=== PATIENT | female | born 1940 | race Caucasian/White ===

== ENCOUNTER 2019-12-21 06:40 | Inpatient (IN) | payer MEDICARE, OTHER, SELFPAY ==
[2019-12-21] VITALS (15 sets, daily range): BP systolic 113–149; BP diastolic 56–78; PULSE 69–85; RESP 17–26; TEMP 36.4–36.7; O2SAT 87–98; BMI 22.1
--- NOTE | 2019-12-21 07:05 | W.ED.DIZZY ---
HPI - Dizziness General: Chief Complaint: Dizziness Stated Complaint: N/V DIZZY Time Seen by Provider: 12/21/19 06:57 History of Present Illness: HPI Narrative: 78-year-old female who presents complaining of dizziness that started approximately 2 hours ago has vertiginous-like dizziness. She has not really had any significant triggers she has not had previously had any episodes like this. She denies any difficulty speech swallowing or vision. She is not had any difficulty with walking or use of her hands or arms. Earlier this month she was on a course of prednisone and also some cetirizine she is completed the prednisone is still taking cetirizine no other medications that she takes regularly. She is not take anything for this this morning. MD elicited complaint: vertigo Onset (ago): hour(s) Timing: sudden onset Severity: severe Description: room spinning History of similar symptoms: No Exacerbating factors: nothing Relieving factors: nothing Associated symptoms: Reports cough (Chronic unchanged); Denies abnormal vaginal bleeding, change in hearing, chest pain, chills, diaphoresis, ear discharge, ear pressure, fevers/chills, headache(s), malaise, nausea, nasal congestion, palpitations, rash, short of breath, syncope, tinnitus, vomiting or weakness Associated neuro symptoms: Deny confusion, difficulty speaking, dysphagia, diplopia, extremity weakness, facial numbness, facial weakness, gait changes, numbness in extremities or visual changes Review of Systems Const: Denies: chills, malaise or diaphoresis ENMT: Denies: ear discharge, change in hearing, tinnitus or nasal congestion Card: Denies: chest pain, palpitations or syncope Resp: Denies: dyspnea, productive cough or non-productive cough GI: Denies: nausea, vomiting or dysphagia : Denies: flank pain, difficulty voiding, dysuria, urinary frequency or urinary urgency Skin/Breast: Denies: rash or pruritus Neuro: Denies: headache(s), numbness in extremities or confusion PFS ED PFSH: Surgical History (Updated 12/21/19 @ 07:18 by Bernard Carvajal DO) H/O: hysterectomy Physical Exam Const: COMMON NORMALS: no acute distress GENERAL APPEARANCE: cooperative and comfortable ORIENTATION/CONSCIOUSNESS: Yes awake, Yes oriented to person, Yes oriented to place and Yes oriented to time HENMT: COMMON NORMALS: normocephalic, atraumatic, hearing grossly normal bilaterally, external ears normal, EAC's normal, TM's normal bilaterally, Normal nasal mucous membranes and turbinates present, moist oral mucous membranes and oropharynx normal HEAD & SCALP: normocephalic and atraumatic NOSE: Normal nasal mucous membranes and turbinates present EXTERNAL EAR: Yes external ears normal EXTERNAL AUDITORY CANAL: EAC's normal TYMPANIC MEMBRANE: TM's normal bilaterally Eye: COMMON NORMALS: Equal, round and reactive pupils present, EOMs intact bilaterally, conjunctivae normal and no scleral icterus CONJUNCTIVA: Yes conjunctivae normal PUPIL: Yes Equal, round and reactive pupils present Neck/C-Spine: COMMON NORMALS: full ROM, no lymphadenopathy, supple and no JVD Lymph: LYMPHATIC: no lymphadenopathy noted and no lymphedema noted Resp: OTHER: Decreased breath sounds on the right side particularly in the right upper lobe crackles at the right base expiratory wheezes throughout Cardio: COMMON NORMALS: no JVD, regular rate, regular rhythm and No murmurs present (Cardio) RATE: regular rate RHYTHM: regular rhythm GI: COMMON NORMALS: Soft to palpation and No hepatosplenomegaly present AUSCULTATION: Yes normoactive bowel sounds PALPATION: Yes Soft to palpation, No Tenderness to palpation present (GI), No Guarding due to palpation present (GI) and Yes No hepatosplenomegaly present Extremity: COMMON NORMALS: normal to inspection, capillary refill normal, no clubbing, cyanosis or edema, no calf tenderness and no pedal edema Neuro: SENSORIUM/ORIENTATION: Yes oriented to person, Yes oriented to place and Yes oriented to time Skin: COMMON NORMALS: no rashes or lesions noted GENERAL SKIN EXAM: no rashes or lesions noted Course Vital Signs: Vital signs: Vital Signs Temperature 98.0 F 12/22/19 15:40 Pulse Rate 73 12/22/19 15:40 Respiratory Rate 16 12/22/19 15:40 Blood Pressure 147/73 12/22/19 15:40 Pulse Oximetry 91 12/22/19 15:40 MDM - Dizziness MDM Narrative: Medical decision making narrative: Chest x-ray shows new right hilar mass compared to 2015 with suspicious for lung CA. There is a subpulmonic effusion and right upper lobe pneumonia. CTA of the chest confirms highly suspicious for lung CA with postobstructive pneumonia. We will start her on Levaquin cultures have been done discussed with Dr. Ontiveros and will also discussed with Dr. Delong. Lab Data: Labs: Lab Results 12/21/19 12/21/19 12/21/19 Range/Units 07:20 07:20 07:20 WBC 20.0 H (4.0-10.0) 10^3/ uL RBC 4.47 (4.1-5.3) 10^6/u L Hgb 10.6 L (11.5-15.3) g/dL Hct 35.1 L (37.0-47.0) % MCV 78.5 L (81-99) fL MCH 23.7 L (28.0-34.0) pg MCHC 30.2 (30.0-36.0) g/dL RDW 16.3 H (12.1-15.1) % Plt Count 516 H (130-400) 10^3/c mm MPV 9.4 (7.4-10.4) fL Neut % (Auto) 85.9 % Lymph % (Auto) 6.1 % [place] % (Auto) 6.0 % Eos % (Auto) 0.9 % Baso % (Auto) 0.5 % Neut # (Auto) 17.21 H (1.8-7.7) 10^3/u L Lymph # (Auto) 1.2 (0.8-4.8) 10^3/u L [place] # (Auto) 1.2 H (0.2-0.9) 10^3/u L Eos # (Auto) 0.2 (0.0-0.8) 10^3/u L Baso # (Auto) 0.1 (0.0-0.1) 10^3/u L Nucleated RBC % (a uto) 0 % Nucleated RBCs # 0.0 /100WBC Fibrinogen 650 H (174-498) mg/dL D-Dimer 3.60 H (0-0.59) ug/mIFE U Specimen Type Sample Site ABG pH (7.35-7.45) ABG pCO2 (35-45) mmHg ABG pO2 (80.0-100.0) mmH g ABG HCO3 (22-26) mmol/L ABG Base Excess (-2.0-2.0) mmol/ L Fidencio Test Hematocrit (37-47) % O2 Delivery Device O2 Liters/Min % Medical Surgical Tech ID Sodium 135 L (136-145) mmol/L Potassium 4.1 (3.5-5.1) mmol/L Chloride 100 (98-107) mmol/L Carbon Dioxide 22 (22-29) mmol/L Anion Gap 17.1 (5-19) BUN 11 (8-23) mg/dL Creatinine 0.7 (0.5-0.9) mg/dL GFR Calculation Not Reportable Glucose 147 H (65-115) mg/dL Estimat Average Gl ucose Hemoglobin A1c (4.0-6.0) % Calculated Osmolal ity 282 L (285-295) mOsm/k g Lactic Acid (0.5-2.2) mmol/L Calcium 10.7 H (8.5-10.5) mg/dL Magnesium (1.7-2.3) mg/dL Iron (37-145) ug/dL TIBC mcg/dl % Saturation (20-50) % Unsat Iron Binding (112-347) ug/dL Transferrin (200-360) mg/dL Ferritin (15-150) ng/mL Total Bilirubin 0.2 (0.15-1.2) mg/dL AST 17 (0-32) U/L ALT 12 (0-33) U/L Alkaline Phosphata se 79 (35-105) IU/L Lactate Dehydrogen ase (135-214) U/L C-Reactive Protein (0.0-4.9) mg/L Total Protein 7.0 (6.6-8.7) g/dL Albumin 3.5 (3.5-5.2) g/dL Globulin 3.5 (1.3-4.6) g/dL Procalcitonin (0-0.5) ng/mL SARS-CoV-2 Ag (Rap id) (Negative) 12/21/19 12/21/19 12/21/19 Range/Units 07:20 07:20 07:20 WBC (4.0-10.0) 10^3/ uL RBC (4.1-5.3) 10^6/u L Hgb (11.5-15.3) g/dL Hct (37.0-47.0) % MCV (81-99) fL MCH (28.0-34.0) pg MCHC (30.0-36.0) g/dL RDW (12.1-15.1) % Plt Count (130-400) 10^3/c mm MPV (7.4-10.4) fL Neut % (Auto) % Lymph % (Auto) % [place] % (Auto) % Eos % (Auto) % Baso % (Auto) % Neut # (Auto) (1.8-7.7) 10^3/u L Lymph # (Auto) (0.8-4.8) 10^3/u L [place] # (Auto) (0.2-0.9) 10^3/u L Eos # (Auto) (0.0-0.8) 10^3/u L Baso # (Auto) (0.0-0.1) 10^3/u L Nucleated RBC % (a uto) % Nucleated RBCs # /100WBC Fibrinogen (174-498) mg/dL D-Dimer (0-0.59) ug/mIFE U Specimen Type Sample Site ABG pH (7.35-7.45) ABG pCO2 (35-45) mmHg ABG pO2 (80.0-100.0) mmH g ABG HCO3 (22-26) mmol/L ABG Base Excess (-2.0-2.0) mmol/ L Fidencio Test Hematocrit (37-47) % O2 Delivery Device O2 Liters/Min % Medical Surgical Tech ID Sodium (136-145) mmol/L Potassium (3.5-5.1) mmol/L Chloride (98-107) mmol/L Carbon Dioxide (22-29) mmol/L Anion Gap (5-19) BUN (8-23) mg/dL Creatinine (0.5-0.9) mg/dL GFR Calculation Glucose (65-115) mg/dL Estimat Average Gl ucose 123 Hemoglobin A1c 5.9 (4.0-6.0) % Calculated Osmolal ity (285-295) mOsm/k g Lactic Acid 1.5 (0.5-2.2) mmol/L Calcium (8.5-10.5) mg/dL Magnesium 2.1 (1.7-2.3) mg/dL Iron (37-145) ug/dL TIBC mcg/dl % Saturation (20-50) % Unsat Iron Binding (112-347) ug/dL Transferrin (200-360) mg/dL Ferritin 428 H (15-150) ng/mL Total Bilirubin (0.15-1.2) mg/dL AST (0-32) U/L ALT (0-33) U/L Alkaline Phosphata se (35-105) IU/L Lactate Dehydrogen ase 203 (135-214) U/L C-Reactive Protein 87.5 H (0.0-4.9) mg/L Total Protein (6.6-8.7) g/dL Albumin (3.5-5.2) g/dL Globulin (1.3-4.6) g/dL Procalcitonin 0.06 (0-0.5) ng/mL SARS-CoV-2 Ag (Rap id) (Negative) 12/21/19 12/21/19 12/21/19 Range/Units 07:20 08:20 08:20 WBC (4.0-10.0) 10^3/ uL RBC (4.1-5.3) 10^6/u L Hgb (11.5-15.3) g/dL Hct (37.0-47.0) % MCV (81-99) fL MCH (28.0-34.0) pg MCHC (30.0-36.0) g/dL RDW (12.1-15.1) % Plt Count (130-400) 10^3/c mm MPV (7.4-10.4) fL Neut % (Auto) % Lymph % (Auto) % [place] % (Auto) % Eos % (Auto) % Baso % (Auto) % Neut # (Auto) (1.8-7.7) 10^3/u L Lymph # (Auto) (0.8-4.8) 10^3/u L [place] # (Auto) (0.2-0.9) 10^3/u L Eos # (Auto) (0.0-0.8) 10^3/u L Baso # (Auto) (0.0-0.1) 10^3/u L Nucleated RBC % (a uto) % Nucleated RBCs # /100WBC Fibrinogen (174-498) mg/dL D-Dimer (0-0.59) ug/mIFE U Specimen Type Arterial Sample Site Radial, left ABG pH 7.38 (7.35-7.45) ABG pCO2 40.8 (35-45) mmHg ABG pO2 63.6 L (80.0-100.0) mmH g ABG HCO3 23.9 (22-26) mmol/L ABG Base Excess -1.3 (-2.0-2.0) mmol/ L Fidencio Test Pos Hematocrit 30.0 L (37-47) % O2 Delivery Device Nc O2 Liters/Min 3.0 % Medical Surgical Tech ID [place] Sodium (136-145) mmol/L Potassium (3.5-5.1) mmol/L Chloride (98-107) mmol/L Carbon Dioxide (22-29) mmol/L Anion Gap (5-19) BUN (8-23) mg/dL Creatinine (0.5-0.9) mg/dL GFR Calculation Glucose (65-115) mg/dL Estimat Average Gl ucose Hemoglobin A1c (4.0-6.0) % Calculated Osmolal ity (285-295) mOsm/k g Lactic Acid (0.5-2.2) mmol/L Calcium (8.5-10.5) mg/dL Magnesium (1.7-2.3) mg/dL Iron 15 L (37-145) ug/dL TIBC 196 mcg/dl % Saturation 7.6 L (20-50) % Unsat Iron Binding 181 (112-347) ug/dL Transferrin 165 L (200-360) mg/dL Ferritin Cancelled (15-150) ng/mL Total Bilirubin (0.15-1.2) mg/dL AST (0-32) U/L ALT (0-33) U/L Alkaline Phosphata se (35-105) IU/L Lactate Dehydrogen ase (135-214) U/L C-Reactive Protein (0.0-4.9) mg/L Total Protein (6.6-8.7) g/dL Albumin (3.5-5.2) g/dL Globulin (1.3-4.6) g/dL Procalcitonin (0-0.5) ng/mL SARS-CoV-2 Ag (Rap id) Negative (Negative) Discharge Plan Discharge Patient Disposition: Admitted As Inpatient Admit Provider: Faustino Rodas Clinical Impression: Postobstructive pneumonia, Acute respiratory failure with hypoxia, Metastasis to adrenal gland, Anemia, Cavitating mass in right upper lung lobe, Mass of right lung Condition: Stable Interventions: ED Discharge Assessment Last Done: 12/21/19 11:34 ED Charges Last Done: 12/21/19 11:34 Discharge Date/Time: 12/21/19 11:50 Coding Level of Care Code ED Placement Specialist for Chg Fwd Exam Comprehensive
--- NOTE | 2019-12-21 07:19 | CTR_ITS ---
PROCEDURE INFORMATION: Exam: CT Head Without Contrast Exam date and time: 12/21/2019 7:38 AM Age: 78 years old Clinical indication: Dizziness; Additional info: Sudden onset vertigo TECHNIQUE: Imaging protocol: Computed tomography of the head without contrast. Radiation optimization: All CT scans at this facility use at least one of these dose optimization techniques: automated exposure control; mA and/or kV adjustment per patient size (includes targeted exams where dose is matched to clinical indication); or iterative reconstruction. COMPARISON: No relevant prior studies available. RADIATION DOSE METRICS: Total DLP (mGy-cm): 766.58 FINDINGS: Brain: Hypodensity is seen in the periventricular cerebral white matter. This change is nonspecific but is most likely secondary to chronic ischemia within microvascular distributions. Page white matter distinction is maintained throughout the brain. No radiographic evidence of intracranial hemorrhage. Encephalomalacia in the left calcarine region/occipital region Cerebral ventricles: Ventricles are enlarged on the basis of mild diffuse cerebral volume loss. Bones/joints: Unremarkable. No acute fracture. Paranasal sinuses: Visualized sinuses are unremarkable. No fluid levels. Mastoid air cells: Visualized mastoid air cells are well aerated. Soft tissues: Unremarkable. Other findings: No intra or extra-axial masses, lesions or collections. CT/CT head wo con* [id number] IMPRESSION: No radiographic evidence of acute intracranial pathology. Radiation Dose CTDIVOL = (mGy): DLP = 766.58 (mGy-cm)
--- NOTE | 2019-12-21 07:20 | XRR_ITS ---
PROCEDURE INFORMATION: Exam: XR Chest, 1 View Exam date and time: 12/21/2019 7:38 AM Age: 78 years old Clinical indication: Cough and dyspnea; Additional info: Dyspnea/cough TECHNIQUE: Imaging protocol: XR of the chest Views: 1 view. COMPARISON: CR Chest 1 [place] [id number] 03/25/2015 7:46 AM FINDINGS: Lungs: Airspace consolidation within the right upper lobe and right mid lung. Subtle airspace disease right lung base. Pleural thickening right apex. Possible cavitary region of approximately [address] chest. Pleural space: Subpulmonic effusion on the right. Heart/Mediastinum: Unremarkable. No cardiomegaly. Bones/joints: Unremarkable. XR/XR chest 1V portable [id number] IMPRESSION: 1. Airspace consolidation within the right upper lobe and right mid lung. Subtle airspace disease right lung base. Pleural thickening right apex. Possible cavitary region of approximately [address] chest. Findings represent a change from 03-25-20. 2. Subpulmonic effusion on the right.
[2019-12-21] MEDS: ondansetron 2 mg/ML SDV 2 mL 4 MG IVP (07:33)
[2019-12-21] MEDS: LORazepam 2 mg/mL INJ 1 mL 1 MG IVP (07:37)
[2019-12-21 07:38] LABS: Basophils # 0.1 10^3/uL (0.0-0.1); Basophils % 0.5 %; Eosinophils # 0.2 10^3/uL (0.0-0.8); Eosinophils % 0.9 %; Hematocrit 35.1 % (37.0-47.0); Hemoglobin 10.6 g/dL (11.5-15.3); Lymphocytes # 1.2 10^3/uL (0.8-4.8); Lymphocytes % 6.1 %; Mean Corpuscular HGB Conc 30.2 g/dL (30.0-36.0); Mean Corpuscular Hemoglobin 23.7 pg (28.0-34.0); Mean Corpuscular Volume 78.5 fL (81-99); Mean Platelet Volume 9.4 fL (7.4-10.4); Monocytes # 1.2 10^3/uL (0.2-0.9); Neutrophils # 17.21 10^3/uL (1.8-7.7); Neutrophils % 85.9 %; Nucleated Red Blood Cells % 0 %; Platelet Count 516 10^3/cmm (130-400); Red Blood Count 4.47 10^6/uL (4.1-5.3); Red Cell Distribution Width 16.3 % (12.1-15.1)
--- NOTE | 2019-12-21 07:44 | PC.NURSE ---
portable xray at bedside
[2019-12-21 07:59] LABS: Alanine Aminotransferase 12 U/L (0-33); Albumin Level 3.5 g/dL (3.5-5.2); Alkaline Phosphatase 79 IU/L (35-105); Aspartate Amino Transferase 17 U/L (0-32); Blood Urea Nitrogen 11 mg/dL (8-23); Calcium 10.7 mg/dL (8.5-10.5); Carbon Dioxide 22 mmol/L (22-29); Chloride 100 mmol/L (98-107); Creatinine Clr Calc Pharmacy 49.5157; Globulin 3.5 g/dL (1.3-4.6); Glucose 147 mg/dL (65-115); Osmolality Calculated 282 mOsm/kg (285-295); Sodium 135 mmol/L (136-145); Total Bilirubin 0.2 mg/dL (0.15-1.2)
--- NOTE | 2019-12-21 08:00 | CTR_ITS ---
PROCEDURE INFORMATION: Exam: CT Angiography Chest With Contrast Exam date and time: 12/21/2019 8:02 AM Age: 78 years old Clinical indication: Cough and dyspnea; Additional info: Dypnea, abnormal cxr TECHNIQUE: Imaging protocol: Computed tomographic angiography of the chest with intravenous contrast. 3D rendering (Not supervised by radiologist): MIP and/or 3D reconstructed images were created by the technologist. Radiation optimization: All CT scans at this facility use at least one of these dose optimization techniques: automated exposure control; mA and/or kV adjustment per patient size (includes targeted exams where dose is matched to clinical indication); or iterative reconstruction. Contrast material: OMNIPAQUE 350; Contrast volume: 63 ml; Contrast route: INTRAVENOUS (IV); COMPARISON: CR (CHEST, ) 12/21/2019 7:38 AM RADIATION DOSE METRICS: Total DLP (mGy-cm): 515.88 FINDINGS: Pulmonary arteries: Soft tissue mass in the right hilum with narrowing of the pulmonary artery including the artery to the right lower lobe as well as the artery to the right upper lobe. Soft tissue versus fluid within the bronchus to the right upper lobe as well as the right lung base. Large soft tissue mass in the right hilum and perihilar/suprahilar region likely measuring in excess of 6 cm. Cavitation. Postobstructive airspace disease with atelectasis of much of the right upper lobe. No visualized embolus. Aorta: Calcification of the aorta. Lungs: Subtle airspace disease within the left lung base of a somewhat ground-glass nature. Correlate. Pleural space: Unremarkable. No pneumothorax. No pleural effusion. Heart: No pericardial effusion Lymph nodes: Small lymph nodes in the left hilum. Nonspecific. Numerous lymph nodes in the mediastinum non. Nonspecific. Largest of approximately 15 mm. Liver: Low-attenuation lesions within the lateral segment of the left lobe of the liver x2 probable cyst. Follow-up. Spleen: Small accessory spleen. Adrenals: Large adrenal nodule on the left of approximately 3.5 cm. Findings concerning for metastases. Bones/joints: Degenerative changes within the spine Soft tissues: Unremarkable. Other findings: No dissection. The thoracic inlet is unremarkable. CT/CT angio chest PE protcl [id number] IMPRESSION: 1. Soft tissue mass in the right hilum with narrowing of the pulmonary artery including the artery to the right lower lobe as well as the artery to the right upper lobe. Soft tissue versus fluid within the bronchus to the right upper lobe as well as the right lung base. Large soft tissue mass in the right hilum and perihilar/suprahilar region likely measuring in excess of 6 cm. Cavitation. Postobstructive airspace disease with atelectasis of much of the right upper lobe. moderate right pleural effusion with right basilar consolidation versus atelectasis. 2. Subtle airspace disease within the left lung base of a somewhat ground-glass nature. Correlate. Small nodules of approximately 5 mm in the subpleural region of the lingula and abutting the major fissure. 3. No dissection. 4. Large adrenal nodule on the left of approximately 3.5 cm. Findings concerning for metastases. 5. No visualized embolus. Radiation Dose CTDIVOL = (mGy): DLP = 515.88 (mGy-cm)
[2019-12-21 08:06] LABS: Anion Gap 17.1 (5-19); Potassium 4.1 mmol/L (3.5-5.1)
[2019-12-21] MEDS: sodium chloride 0.9% 1,000 ML 999 ML IV (08:19)
--- NOTE | 2019-12-21 08:23 | PC.NURSE ---
pt had taken NC off and pt's room air saturation was 82%. Pt supplemental oxygen increased to 3L and pt's position adjust to allow for maximum lung expansion
[2019-12-21 08:26] LABS: Fibrinogen 650 mg/dL (174-498)
[2019-12-21 08:34] LABS: ABG PCO2 40.8 mmHg (35-45); ABG PH Result 7.38 (7.35-7.45); Base Excess ABG -1.3 mmol/L (-2.0-2.0); Blood Gas Allen Test Pos; Blood Gas Operator Identificat BROMA; Blood Gas Sample Site Radial, left; Blood Gas Sample Type Arterial; HCO3 ABG 23.9 mmol/L (22-26); Oxygen Device NC; PO2 ABG 63.6 mmHg (80.0-100.0)
[2019-12-21] MEDS: iohexol 350 mg/mL 100 mL Btl IV (08:39)
[2019-12-21 08:46] LABS: Procalcitonin 0.06 ng/mL (0-0.5)
[2019-12-21 08:48] LABS: SARS Covid-2 Antigen Negative (Negative)
[2019-12-21] MEDS: levofloxacin-dextrose 5 % 750 MG/150 ML PREMIX 100 MG IV (08:49)
[2019-12-21 08:56] LABS: C Reactive Protein 87.5 mg/L (0.0-4.9); Ferritin 428 ng/mL (15-150); Magnesium 2.1 mg/dL (1.7-2.3)
[2019-12-21 09:14] LABS: Lactate Dehydrogenase 203 U/L (135-214)
[2019-12-21] MEDS: piperacillin-tazobactam 3.375 GM in sodium chloride 0.9% (plus) 50 ML IV ×3 (10:32→23:49)
[2019-12-21 11:03] LABS: Lactic Sepsis W/Reflex 1.5 mmol/L (0.5-2.2)
[2019-12-21 12:17] LABS: Add Urine Microscopic? NO
[2019-12-21 12:19] LABS: Bilirubin Urine Neg (Negative); Blood Urine Neg (Negative); Glucose Urine UA Norm (Normal); Ketones Urine Negative (Negative); Leukocyte Esterase Urine Negative (Negative); Nitrate Urine Negative (Negative); Protein Urine Neg (Negative); Urine Appearance Clear (CLEAR); Urine Color Yellow (Yellow); Urobilinogen Urine Norm (Negative); pH Urine 5 (5-7)
--- NOTE | 2019-12-21 14:16 | PM.HP ---
Providers/Chief Complaint Admitting Physician: Faustino Rodas Primary Care Provider: Santi Modi MD Chief Complaint: N/V DIZZY History of Present Illness Brandi Claire is a 78 year old female with no significant past medical history who presented to emergency room with complaints of shortness of breath, cough with associated generalized weakness and dizziness. She reports that her symptoms started last Monday. Gradual onset. Currently her symptoms are described as moderate in severity. Her cough is dry. She denies hemoptysis. No fever or chills. She denies chest pain or palpitations. Denies any focal muscle weakness or sensory loss. Denies headache. No seizures. No loss of consciousness. Reports some nausea. No vomiting. Denies diarrhea. She denies any similar episodes in the past. The patient is a active smoker. Denies drugs or daily alcohol intake. Does not take any prescription medications. The patient denies any significant family history. Review of Systems General: Reports: 10 or more systems reviewed and unremarkable except in HPI and below Medications/Allergies Home Medications Medication Instructions Recorded Confirmed Last Taken Type naproxen sodium [Aleve] 220 mg PO DAILY 12/21/19 12/21/19 12/20/19 09:00 History Allergies Allergy/AdvReac Type Severity Reaction Status Date / Time No Known Allergies Allergy Verified 12/21/19 06:51 PFSH Acute PFSH: Surgical History (Updated 12/21/19 @ 07:18 by Bernard Carvajal DO) H/O: hysterectomy Vitals/I&O/Wt Last Vital Signs Temp 97.6 F 12/21/19 12:13 Pulse 72 12/21/19 12:13 Resp 18 12/21/19 12:13 BP 139/72 12/21/19 12:13 Pulse Ox 98 12/21/19 12:13 12/20/19 12/21/19 12/21/19 22:59 06:59 14:59 Intake Total 1200 / 1200 Balance 1200 / 1200 Weight last 48 hrs Weight 56.699 kg Physical Exam Narrative: EXAM NARRATIVE: Awake alert oriented. No acute distress. Mood and affect are appropriate. Responses are adequate. Skin is warm and dry. Moist mucous membranes. Neck is supple no JVD Lungs bilateral crackles. More pronounced on the right side. Decreased breath sounds in the right side. No respiratory distress at rest. Heart S1, S2, regular Abdomen soft, nontender, bowel sounds are present Extremities no edema cyanosis or calf tenderness bilaterally No focal muscle weakness or sensory loss. Eyes Laura, extraocular muscles intact. No icterus. Normal speech. Data : 12/21/19 07:20 12/21/19 07:20 Other Labs: Laboratory Results WBC 20.0 10^3/uL (4.0-10.0) H 12/21/19 07:20 RBC 4.47 10^6/uL (4.1-5.3) 12/21/19 07:20 Hgb 10.6 g/dL (11.5-15.3) L 12/21/19 07:20 Hct 35.1 % (37.0-47.0) L 12/21/19 07:20 MCV 78.5 fL (81-99) L 12/21/19 07:20 MCH 23.7 pg (28.0-34.0) L 12/21/19 07:20 MCHC 30.2 g/dL (30.0-36.0) 12/21/19 07:20 RDW 16.3 % (12.1-15.1) H 12/21/19 07:20 Plt Count 516 10^3/cmm (130-400) H 12/21/19 07:20 MPV 9.4 fL (7.4-10.4) 12/21/19 07:20 Neut % (Auto) 85.9 % 12/21/19 07:20 Lymph % (Auto) 6.1 % 12/21/19 07:20 [place] % (Auto) 6.0 % 12/21/19 07:20 Eos % (Auto) 0.9 % 12/21/19 07:20 Baso % (Auto) 0.5 % 12/21/19 07:20 Neut # (Auto) 17.21 10^3/uL (1.8-7.7) H 12/21/19 07:20 Lymph # (Auto) 1.2 10^3/uL (0.8-4.8) 12/21/19 07:20 [place] # (Auto) 1.2 10^3/uL (0.2-0.9) H 12/21/19 07:20 Eos # (Auto) 0.2 10^3/uL (0.0-0.8) 12/21/19 07:20 Baso # (Auto) 0.1 10^3/uL (0.0-0.1) 12/21/19 07:20 Nucleated RBC % (auto) 0 % 12/21/19 07:20 Nucleated RBCs # 0.0 /100WBC 12/21/19 07:20 Fibrinogen 650 mg/dL (174-498) H 12/21/19 07:20 D-Dimer 3.60 ug/mIFEU (0-0.59) H 12/21/19 07:20 Specimen Type Arterial 12/21/19 08:20 Sample Site Radial, left 12/21/19 08:20 ABG pH 7.38 (7.35-7.45) 12/21/19 08:20 ABG pCO2 40.8 mmHg (35-45) 12/21/19 08:20 ABG pO2 63.6 mmHg (80.0-100.0) L 12/21/19 08:20 ABG HCO3 23.9 mmol/L (22-26) 12/21/19 08:20 ABG Base Excess -1.3 mmol/L (-2.0-2.0) 12/21/19 08:20 Fidencio Test Pos 12/21/19 08:20 Hematocrit 30.0 % (37-47) L 12/21/19 08:20 O2 Delivery Device Nc 12/21/19 08:20 O2 Liters/Min 3.0 % 12/21/19 08:20 Complaint Clerk ID Broma 12/21/19 08:20 Sodium 135 mmol/L (136-145) L 12/21/19 07:20 Potassium 4.1 mmol/L (3.5-5.1) 12/21/19 07:20 Chloride 100 mmol/L (98-107) 12/21/19 07:20 Carbon Dioxide 22 mmol/L (22-29) 12/21/19 07:20 Anion Gap 17.1 (5-19) 12/21/19 07:20 BUN 11 mg/dL (8-23) 12/21/19 07:20 Creatinine 0.7 mg/dL (0.5-0.9) 12/21/19 07:20 GFR Calculation Not Reportable 12/21/19 07:20 Glucose 147 mg/dL (65-115) H 12/21/19 07:20 Calculated Osmolality 282 mOsm/kg (285-295) L 12/21/19 07:20 Lactic Acid 1.5 mmol/L (0.5-2.2) 12/21/19 07:20 Calcium 10.7 mg/dL (8.5-10.5) H 12/21/19 07:20 Magnesium 2.1 mg/dL (1.7-2.3) 12/21/19 07:20 Ferritin 428 ng/mL (15-150) H 12/21/19 07:20 Ferritin Cancelled 12/21/19 07:20 Total Bilirubin 0.2 mg/dL (0.15-1.2) 12/21/19 07:20 AST 17 U/L (0-32) 12/21/19 07:20 ALT 12 U/L (0-33) 12/21/19 07:20 Alkaline Phosphatase 79 IU/L (35-105) 12/21/19 07:20 Lactate Dehydrogenase 203 U/L (135-214) 12/21/19 07:20 C-Reactive Protein 87.5 mg/L (0.0-4.9) H 12/21/19 07:20 Total Protein 7.0 g/dL (6.6-8.7) 12/21/19 07:20 Albumin 3.5 g/dL (3.5-5.2) 12/21/19 07:20 Globulin 3.5 g/dL (1.3-4.6) 12/21/19 07:20 Procalcitonin 0.06 ng/mL (0-0.5) 12/21/19 07:20 Urine Color Yellow (Yellow) 12/21/19 11:50 Urine Appearance Clear (CLEAR) 12/21/19 11:50 Urine pH 5 (5-7) 12/21/19 11:50 Ur Specific [place] 1.010 (1.005-1.030) 12/21/19 11:50 Urine Protein Neg (Negative) 12/21/19 11:50 Urine Glucose (UA) Norm (Normal) 12/21/19 11:50 Urine Ketones Negative (Negative) 12/21/19 11:50 Urine Blood Neg (Negative) 12/21/19 11:50 Urine Nitrate Negative (Negative) 12/21/19 11:50 Urine Bilirubin Neg (Negative) 12/21/19 11:50 Urine Urobilinogen Norm mg/dL (Negative) 12/21/19 11:50 Ur Leukocyte Esterase Negative (Negative) 12/21/19 11:50 SARS-CoV-2 Ag (Rapid) Negative (Negative) 12/21/19 08:[address] 12/21/19 07:19 IMPRESSION: No radiographic evidence of acute intracranial pathology. Radiation Dose CTDIVOL = (mGy): DLP = 766.58 (mGy-cm) Chest X-Ray 12/21/19 07:20 IMPRESSION: 1. Airspace consolidation within the right upper lobe and right mid lung. Subtle airspace disease right lung base. Pleural thickening right apex. Possible cavitary region of approximately [address] chest. Findings represent a change from 03-25-20. 2. Subpulmonic effusion on the right. Chest CTA 12/21/19 08:00 IMPRESSION: 1. Soft tissue mass in the right hilum with narrowing of the pulmonary artery including the artery to the right lower lobe as well as the artery to the right upper lobe. Soft tissue versus fluid within the bronchus to the right upper lobe as well as the right lung base. Large soft tissue mass in the right hilum and perihilar/suprahilar region likely measuring in excess of 6 cm. Cavitation. Postobstructive airspace disease with atelectasis of much of the right upper lobe. moderate right pleural effusion with right basilar consolidation versus atelectasis. 2. Subtle airspace disease within the left lung base of a somewhat ground-glass nature. Correlate. Small nodules of approximately 5 mm in the subpleural region of the lingula and abutting the major fissure. 3. No dissection. 4. Large adrenal nodule on the left of approximately 3.5 cm. Findings concerning for metastases. 5. No visualized embolus. Radiation Dose CTDIVOL = (mGy): DLP = 515.88 (mGy-cm) ADDENDUM: 12/21/19902 The above was read and discussed at approximately 9:01 AM CDT on12/21/2019 with the attending physician , Bernard Zuleta. Radiation Dose CTDIVOL = (mGy): DLP = 515.88 (mGy-cm) Micro: Microbiology 12/21/19 11:12 Blood Culture - Preliminary Blood SPECIMEN COLLECTED 12/21/19 07:20 Blood Culture - Preliminary Blood SPECIMEN COLLECTED A&P Additional A&P Information 78-year-old female with no significant past medical history, active smoker, who is presenting with complaints of dizziness and lightheadedness, shortness of breath and dry cough. The patient is found to have hypoxia which responded well to supplemental oxygen. The patient has cavitary lesion in the right lung, hilum. She has bronchial obstruction supplying right upper lobe and right lower lobes. Suspected postobstructive pneumonia. Will check procalcitonin level. We will de-escalate antibiotics if procalcitonin is normal. Acute hypoxic respiratory failure secondary to lung cavitary lesion and postobstructive pneumonia. Continue supplemental oxygen. She is stable now. Starting Zosyn and Levaquin. Will check sputum culture and MRSA screening. Will adjust antibiotics depending on this test results and clinical course. She will receive respiratory treatments as needed. I suspect baseline COPD as well. ER physician Dr. Chu contacted Dr. Delong who will see the patient Monday. Adrenal metastatic lesion. After evaluation by Dr. Delong will decide about possible biopsy or other ways of obtaining tissue diagnosis. The treatment will depend on pathology report. Hyponatremia. Could be related to SIADH secondary to past lung cancer and pneumonia. For now we will continue gentle hydration. Will consider additional testing. Hypercalcemia. Could be part of paraneoplastic syndrome related to the suspected cancer. I will check her PTH related peptide. Normal saline. Monitoring of chemistry panel including calcium level. Anemia. Probably chronic due to cancer. I will order anemia work-up. Hyper glycemia. We will check her A1c level. DVT prophylaxis. Lovenox. The patient wants to be full code. The findings were discussed with the patient. I also discussed the plan of care. I answered to all her questions. She verbalized understanding and satisfaction with the conversation. Attestations Medical Necessity Statement*: Based on my assessment of her current findings and condition she will require more than 2 midnights in the hospital. Coding Level of Care Code Acute Mold Checker for Agustín Tillman
[2019-12-21] MEDS: sodium chloride 0.9% 1,000 ML 75 ML IV (14:37)
[2019-12-21] MEDS: enoxaparin 40 mg/0.4 mL Syringe SUBCUT (14:37)
[2019-12-21 15:02] LABS: Estmated Average Glucose 123; Hemoglobin A1C 5.9 % (4.0-6.0); Iron 15 ug/dL (37-145); Percent Saturation 7.6 % (20-50); Total Iron Binding Capacity 196 mcg/dl; Transferrin 165 mg/dL (200-360); Unsaturated Iron Binding 181 ug/dL (112-347)
[2019-12-22 04:00] VITALS: BP 129/72; PULSE 75; RESP 17; TEMP 36.6; O2SAT 90
--- NOTE | 2019-12-22 04:16 | PC.NURSE ---
full wet brief
[2019-12-22 04:45] LABS: Ionized Calcium 1.2 mmol/L (1.1-1.4)
[2019-12-22 05:33] LABS: Basophils # 0.1 10^3/uL (0.0-0.1); Basophils % 0.8 %; Eosinophils # 0.1 10^3/uL (0.0-0.8); Eosinophils % 1.5 %; Hematocrit 27.7 % (37.0-47.0); Hemoglobin 8.5 g/dL (11.5-15.3); Lymphocytes # 1.3 10^3/uL (0.8-4.8); Lymphocytes % 14.9 %; Mean Corpuscular HGB Conc 30.7 g/dL (30.0-36.0); Mean Corpuscular Hemoglobin 23.9 pg (28.0-34.0); Mean Corpuscular Volume 77.8 fL (81-99); Mean Platelet Volume 9.6 fL (7.4-10.4); Monocytes # 0.9 10^3/uL (0.2-0.9); Monocytes % 9.8 %; Neutrophils # 6.41 10^3/uL (1.8-7.7); Neutrophils % 72.7 %; Nucleated Red Blood Cells % 0 %; Platelet Count 393 10^3/cmm (130-400); Red Blood Count 3.56 10^6/uL (4.1-5.3); White Blood Count 8.8 10^3/uL (4.0-10.0)
[2019-12-22 05:51] LABS: Magnesium 1.9 mg/dL (1.7-2.3)
[2019-12-22 05:52] LABS: Alanine Aminotransferase 10 U/L (0-33); Albumin Level 3.1 g/dL (3.5-5.2); Alkaline Phosphatase 59 IU/L (35-105); Anion Gap 15.3 (5-19); Aspartate Amino Transferase 15 U/L (0-32); Blood Urea Nitrogen 11 mg/dL (8-23); Calcium 9.2 mg/dL (8.5-10.5); Carbon Dioxide 19 mmol/L (22-29); Chloride 105 mmol/L (98-107); Globulin 2.3 g/dL (1.3-4.6); Glucose 96 mg/dL (65-115); Osmolality Calculated 279 mOsm/kg (285-295); Potassium 4.3 mmol/L (3.5-5.1); Sodium 135 mmol/L (136-145); Total Bilirubin 0.2 mg/dL (0.15-1.2); Total Protein 5.4 g/dL (6.6-8.7)
[2019-12-22 05:59] LABS: Procalcitonin 0.14 ng/mL (0-0.5)
--- NOTE | 2019-12-22 07:03 | PC.NURSE ---
Received report from Patricia Hess LVN. Assumed care of patient.
[2019-12-22 07:13] VITALS: BP 128/68; PULSE 77; RESP 16; TEMP 36.4; O2SAT 91
[2019-12-22] MEDS: piperacillin-tazobactam 3.375 GM in sodium chloride 0.9% (plus) 50 ML IV ×3 (07:18→23:34)
[2019-12-22] MEDS: sodium chloride 0.9% 1,000 ML 75 ML IV (07:26)
--- NOTE | 2019-12-22 07:28 | PC.NURSE ---
Patient refusing to wear oxygen, upon entering room for assessment oxygen nasal canula was in the floor, oxygen saturation checked 91% on RA. Will continue to monitor. Patient reports she has been taking it off when no one is in the room.
[2019-12-22] MEDS: pantoprazole 40 mg SDV IVP ×2 (08:33→20:07)
[2019-12-22] MEDS: folic acid 1 mg Tablet PO (08:33)
--- NOTE | 2019-12-22 08:59 | PC.NURSE ---
Rechecked oxygen saturation 84% on RA, placed back on oxygen at 2L via Nasal Canula, oxygen saturation 90%,teaching completed on leaving oxygen in place when nursing staff is not in room, verbalized understanding.
[2019-12-22] MEDS: iron sucrose 200 MG in sodium chloride 0.9% (100 ml) 100 ML 220 MG IV (09:42)
[2019-12-22 10:13] LABS: Vitamin B12 951 pg/mL (232-1245)
--- NOTE | 2019-12-22 10:44 | PC.NURSE ---
Shreyas Claire, son of patient, listed on chart and approved by patient, discussed plan of care and updated on patients status, patient and patient's son had no further questions.
--- NOTE | 2019-12-22 10:54 | PM.PN ---
Subjective Subjective: Interval history: Patient reports ongoing cough, occasionally with streaks of blood in the mucus. She had a bowel movement which was brown. No blood. Denies shortness of breath or chest pain. No nausea or vomiting. No diarrhea Medications: Reviewed: Yes Medication Review Details: Generic Name Dose Route Start Last Admin Trade Name Jade PRN Reason Stop Dose Admin Folic Acid 1 mg 12/22/19 09:00 12/22/19 08:33 Folic Acid PO 1 mg DAILY SARAH Administration Sodium Chloride 1,000 mls @ 75 ml s/hr 12/21/19 14:00 12/22/19 07:26 Sodium Chloride 0.9% IV 75 mls/hr .[id number] SARAH Administration Piperacillin Sod/T azobactam 50 mls @ 12.5 mls /hr 12/21/19 16:00 12/22/19 07:18 Sod 3.375 gm/ So dium Chloride IV 12.5 mls/hr Q8H SARAH Administration Protocol Iron Sucrose 200 m g/ Sodium 110 mls @ 220 mls /hr 12/22/19 09:00 12/22/19 09:42 Chloride IV 12/26/19 09:29 220 mls/hr Q24H SARAH Administration Pantoprazole Sodiu m 40 mg 12/22/19 09:00 12/22/19 08:33 Protonix IVP 40 mg Q12H SARAH Administration Vitals/I&O/Wt Last Vital Signs Temp 97.6 F 12/22/19 07:13 Pulse 77 12/22/19 07:13 Resp 16 12/22/19 07:13 BP 128/68 12/22/19 07:13 Pulse Ox 91 12/22/19 07:13 12/21/19 12/22/19 12/22/19 22:59 06:59 14:59 Intake Total 330 / 1530 1370 / 2900 140 / 140 Output Total 800 / 800 200 / 1000 400 / 400 Balance -470 / 730 1170 / 1900 -260 / -260 Weight last 48 hrs Weight 56.699 kg Physical Exam Narrative: EXAM NARRATIVE: Awake alert oriented. No acute distress. Mood and affect are appropriate. Responses are adequate. Skin is warm and dry. Moist mucous membranes. Neck is supple no JVD Lungs bilateral crackles. More pronounced on the right side. Decreased breath sounds in the right side. No respiratory distress at rest. Heart S1, S2, regular Abdomen soft, nontender, bowel sounds are present Extremities with trace edema bilaterally, no cyanosis or calf tenderness bilaterally No focal muscle weakness or sensory loss. Eyes Laura, extraocular muscles intact. No icterus. Normal speech. Data : 12/22/19 04:35 12/22/19 04:35 Micro: Microbiology 12/21/19 07:20 Blood Culture - Preliminary Blood NEGATIVE TO DATE 12/21/19 14:44 Occult Blood (FIT) - Final Stool - Stool Aspirate 12/21/19 11:12 Blood Culture - Preliminary Blood SPECIMEN COLLECTED A&P Additional A&P Information 78-year-old female with no significant past medical history, active smoker, who is presenting with complaints of dizziness and lightheadedness, shortness of breath and dry cough. The patient is found to have hypoxia which responded well to supplemental oxygen. The patient has cavitary lesion in the right lung, hilum. She has bronchial obstruction supplying right upper lobe and right lower lobes. Suspected postobstructive pneumonia. However, normal procalcitonin level. We will start de-escalating antibiotics. Acute hypoxic respiratory failure secondary to lung cavitary lesion and postobstructive pneumonia. Continue supplemental oxygen. She is stable now. Starting Zosyn for now. Will check sputum culture and MRSA screening. Will adjust antibiotics depending on this test results and clinical course. She will receive respiratory treatments as needed. I suspect baseline COPD as well. ER physician Dr. Chu contacted Dr. Delong who will see the patient Monday. Adrenal metastatic lesion. After evaluation by Dr. Delong will decide about possible biopsy or other ways of obtaining tissue diagnosis. The treatment will depend on pathology report. Hyponatremia. Resolving could be related to SIADH secondary to past lung cancer and pneumonia. Will stop IV fluids and continue monitoring Hypercalcemia. Could be part of paraneoplastic syndrome related to the suspected cancer. I will check her PTH related peptide. Resolved. Will stop IV fluids and monitor Anemia. Worsened since yesterday. I suspect hemodilution. Probably chronic due to cancer. Iron deficiency is present. Will start replacement IV. We will monitor her anemia. Fecal occult blood testing is positive but I suspect this is due to hemoptysis and swallowing the mucus. If anemia worsens further we will consider GI consultation. For now I am starting also IV PPI twice daily. Hyper glycemia. We will check her A1c level. DVT prophylaxis. Teds and SCDs, Lovenox is stopped due to hemoptysis and positive fecal occult blood test/anemia. Full code. The findings were discussed with the patient. I also discussed the plan of care. I answered to all her questions. She verbalized understanding and satisfaction with the conversation. Attestations Medical Necessity Statement*: The patient still limited needs to be in the hospital due to worsening anemia, need for pulmonary evaluation by Dr. Delong tomorrow. Coding Level of Care Code Acute Asbestos Shingle Roofer for Agustín Tillman
--- NOTE | 2019-12-22 11:32 | PC.NURSE ---
Spoke with patients son Shreyas Claire who is requesting update on patient by physician. Mr Claire states that if he does not receive a call from physician within the hour that he will come to hospital and have his mother transferred to another facility. Son states someone from this facility said we would transfer patient to [facility] if patient is positive for Covid. Informed patient that patient is still pending on the Covid test. Questions answered. Physician notified.
[2019-12-22 12:00] VITALS: BP 145/78; PULSE 69; RESP 17; TEMP 36.6; O2SAT 87
--- NOTE | 2019-12-22 13:47 | PC.NURSE ---
upon entry to the room, the patient wasn't wearing her nasal canula. when asked about it the patient stated that she had taken it off to change her shirt and forgot to put it back on. asked patient if it was ok if the oxygen was put back on, and she agreed.
[2019-12-22 15:40] VITALS: BP 147/73; PULSE 73; RESP 16; TEMP 36.7; O2SAT 91
--- NOTE | 2019-12-22 17:12 | PC.NURSE ---
Spoke with patient daughter Lindsay. Received verbal permission to give any medical information to Lindsay Zapata. Patient daughter voiced concerns regarding mother care. Assured daughter that I would speak with patient to discuss any unmet needs or issues with care. Patient states that she did receive a shower today. The patient denies c/o pain or needs and states that she is feeling run down. Daughter phone number will be sent to admissions and placed on chart.
--- NOTE | 2019-12-22 18:42 | PC.NURSE ---
Dr. Rodas notified this nurse to stop IV maintenance fluids, see MAR for further details.
--- NOTE | 2019-12-22 18:43 | PC.NURSE ---
DIRECTOR [place] called nurse to room, IV on floor, tip intact, cleaned and restarted IV 20G to left AC.
[2019-12-22 19:18] VITALS: BP 162/82; PULSE 82; RESP 18; TEMP 36.8; O2SAT 94
[2019-12-22 23:40] VITALS: BP 161/76; PULSE 69; RESP 16; TEMP 36.7; O2SAT 92
[2019-12-23] VITALS (9 sets, daily range): BP systolic 130–167; BP diastolic 57–81; PULSE 68–145; RESP 14–18; TEMP 36.4–37; O2SAT 87–92
--- NOTE | 2019-12-23 04:14 | PC.NURSE ---
patient went in toilet and flushed
[2019-12-23 05:35] LABS: Basophils % 0.4 %; Eosinophils # 0.1 10^3/uL (0.0-0.8); Eosinophils % 1.3 %; Hematocrit 29.2 % (37.0-47.0); Hemoglobin 8.6 g/dL (11.5-15.3); Lymphocytes # 1.1 10^3/uL (0.8-4.8); Lymphocytes % 10.8 %; Mean Corpuscular HGB Conc 29.5 g/dL (30.0-36.0); Mean Corpuscular Volume 81.3 fL (81-99); Mean Platelet Volume 9.2 fL (7.4-10.4); Monocytes # 0.9 10^3/uL (0.2-0.9); Monocytes % 9.1 %; Neutrophils # 7.99 10^3/uL (1.8-7.7); Neutrophils % 77.8 %; Nucleated Red Blood Cells % 0 %; Platelet Count 343 10^3/cmm (130-400); Red Blood Count 3.59 10^6/uL (4.1-5.3); Red Cell Distribution Width 16.1 % (12.1-15.1); White Blood Count 10.3 10^3/uL (4.0-10.0)
[2019-12-23 06:17] LABS: Magnesium 1.9 mg/dL (1.7-2.3)
[2019-12-23 06:31] LABS: Albumin Level 3.1 g/dL (3.5-5.2); Blood Urea Nitrogen 8 mg/dL (8-23); Calcium 9.1 mg/dL (8.5-10.5); Carbon Dioxide 19 mmol/L (22-29); Chloride 104 mmol/L (98-107); Glucose 93 mg/dL (65-115); Phosphorus 3.1 mg/dL (2.5-4.5); Sodium 135 mmol/L (136-145)
[2019-12-23 06:36] LABS: Anion Gap 15.8 (5-19); Potassium 3.8 mmol/L (3.5-5.1)
[2019-12-23 06:47] LABS: Vitamin B12 916 pg/mL (232-1245)
[2019-12-23] MEDS: ondansetron 2 mg/ML SDV 2 mL 4 MG IVP (07:21)
[2019-12-23] MEDS: pantoprazole 40 mg SDV IVP ×2 (07:22→21:31)
[2019-12-23] MEDS: piperacillin-tazobactam 3.375 GM in sodium chloride 0.9% (plus) 50 ML IV ×2 (07:22→15:18)
[2019-12-23] MEDS: folic acid 1 mg Tablet PO (07:22)
--- NOTE | 2019-12-23 08:06 | ECG_ITS ---
[facility] Test Date: 2019-12-23 Pat Name: Brandi Claire Department: Room: 252 Gender: Female Housing Development Specialist: : [id number] Requested By: Sylwia Garcia Order Number: [id number] Benjie MD: Lexy Claire M.D. Measurements Intervals [place] Rate: 74 P: -16 NE: 157 QRS: -3 QRSD: 89 T: -11 QT: 359 QTc: 400 Interpretive Statements SINUS RHYTHM VOLTAGE CRITERIA FOR LVH [MEETS CRITERIA IN ONE OF: R(aVL), S(V1), R(V5), R(V5/V6)+S(V1)] WARNING: DATA QUALITY MAY AFFECT INTERPRETATION Compared to ECG 03/25/2015 08:03:34 Left ventricular hypertrophy now present Myocardial infarct finding no longer present Electronically Signed On 12-23-2019 18:01:29 CDT by Lexy Claire M.D. [id number]
--- NOTE | 2019-12-23 08:06 | PC.NURSE ---
iDr. Garcia notified of patient heart rate increase to 145, after episode of nausea and vomiting this morning, patient denies pain but states, i can just feel it beating fast. New orders received for metoprolol. See MAR for further details.
[2019-12-23] MEDS: metoprolol tartrate 1 mg/1 mL SDV 5 mL 2.5 MG IV (08:11)
--- NOTE | 2019-12-23 08:14 | PC.NURSE ---
ekg monitor tech in place metoprolol given per doctors orders, will continue to monitor heart rate, patient denies pain, talking to family on the phone. Call light in reach, side rails up X2.
--- NOTE | 2019-12-23 08:43 | PC.NURSE ---
Spoke to Shreyas patients son and updated on plan of care, denies further questions or concerns.
--- NOTE | 2019-12-23 08:57 | PC.NURSE ---
Telemetry reading SR 74
--- NOTE | 2019-12-23 09:03 | PC.NURSE ---
Patient denies further nausea, denies pain, call light in reach, side rails up X2
[2019-12-23] MEDS: iron sucrose 200 MG in sodium chloride 0.9% (100 ml) 100 ML 220 MG IV (10:19)
[2019-12-23 10:40] LABS: Coronavirus Lab Test PTC Negative
--- NOTE | 2019-12-23 11:04 | PC.NURSE ---
IV leaking, discontinued, tip intact. updated declan Pritchett on scheduled bronchoscopy, verbalized understanding
[2019-12-23] MEDS: morphine 4 mg/mL SDV 1 mL 2 MG IVP (13:16)
[2019-12-23] MEDS: lidocaine 1% INJ 20 mL INJECTION (13:17)
--- NOTE | 2019-12-23 13:18 | PC.NURSE ---
Assisted Dr. Delong with bedside procedure. Patient received 2mg morphine and lidocaine was administered by Dr. Delong during procedure.
--- NOTE | 2019-12-23 15:13 | XRR_ITS ---
PROCEDURE INFORMATION: Exam: XR Chest, 1 View Exam date and time: 12/23/2019 3:45 PM Age: 79 years old Clinical indication: Device placement; Other: Post needle biopsy; Prior surgery; Surgery date: Post-operative (0-2 days) TECHNIQUE: Imaging protocol: XR of the chest Views: 1 view. COMPARISON: CR (CHEST, ) 12/21/2019 7:38 AM FINDINGS: Lungs: Unremarkable. No consolidation. The right lower lobe and left lung are clear Pleural space: There is a diffuse pleural thickening in the right apical region with a central defect measuring 6.4 cm x 5.5 cm . Right lower lobe pleural effusion. There is pleural tenting in the right hemidiaphragm. No pneumothorax. Heart/Mediastinum: Unremarkable. No cardiomegaly. Bones/joints: Unremarkable. XR/XR chest 1V portable [id number] IMPRESSION: 1. Stable pleural thickening in the right lung apex 2. Volume loss right hemithorax 3. Pleural tenting right hemidiaphragm. 4. Right lower lobe pleural effusion
--- NOTE | 2019-12-23 15:44 | P.CONIM_ITS ---
Providers/Reason For Consult Consulting Physican/Specialty*: Pulmonary and critical care medicine Reason for Consult*: Right lung mass Attending Physician: Sylwia Garcia MD Primary Care Provider: Santi Modi MD History of Present Illness History of Present Illness Brandi Claire is a 79 year old female who presented to the hospital with cough, minimal sputum production, shortness of breath and generalized weakness. During evaluation, the patient was found to have a right upper lobe cavitary lesion with volume loss, right-sided pleural effusion and mediastinal shift. The patient subsequently underwent a CT scan of the chest. The CT scan revealed a soft tissue mass in the right hilum with narrowing of the pulmonary artery. There was significant cavitation. Right lower lobe was completely atelectatic and there was right-sided pleural effusion. There was a large left adrenal nodule measuring 3.5 cm. This is all concerning for metastatic lung malignancy. On laboratory work-up the patient was anemic, had leukocytosis. I had seen and examined the patient. The patient has an extensive history of smoking and quit smoking few weeks ago. She gives a history of chronic cough occasional sputum production and exertional shortness of breath. She does not endorse hemoptysis but tells me about weight loss of 10 pounds in the recent past. I had performed a bedside ultrasound which revealed a soft tissue mass in the right upper lung. Review of Systems General: Reports: 10 or more systems reviewed and unremarkable except in HPI and below Meds/Allergies Home Medications and Allergies Home Medications Medication Instructions Recorded Confirmed Last Taken Type naproxen sodium [Aleve] 220 mg PO DAILY 12/21/19 12/21/19 12/20/19 09:00 History Allergies Allergy/AdvReac Type Severity Reaction Status Date / Time No Known Allergies Allergy Verified 12/21/19 06:51 Current Medications Current Medications Generic Name Dose Route Start Last Admin Trade Name Freq PRN Reason Stop Dose Admin Folic Acid 1 mg 12/22/19 09:00 12/23/19 07:22 Folic Acid PO 1 mg DAILY SARAH Administration Piperacillin Sod/Tazobactam 50 mls @ 12.5 mls/hr 12/21/19 16:00 12/23/19 15:18 Sod 3.375 gm/ Sodium Chloride IV 12.5 mls/hr Q8H SARAH Administration Protocol Iron Sucrose 200 mg/ Sodium 110 mls @ 220 mls/hr 12/22/19 09:00 12/23/19 10:19 Chloride IV 12/26/19 09:29 220 mls/hr Q24H SARAH Administration Metoprolol Tartrate 2.5 mg 12/23/19 08:06 12/23/19 08:11 Metoprolol Tartrate IV 2.5 mg Q4H PRN Administration palpitations, HR >120 Ondansetron HCl 4 mg 12/21/19 12:12 12/23/19 07:21 Zofran IVP 4 mg Q6H PRN Administration NAUSEA AND VOMITING Pantoprazole Sodium 40 mg 12/22/19 09:00 12/23/19 07:22 Protonix IVP 40 mg Q12H SARAH Administration PFSH Acute PFSH: Surgical History H/O: hysterectomy Vitals/I&O/Wt Last Vital Signs Temp 98.6 F 12/23/19 14:57 Pulse 68 12/23/19 14:57 Resp 18 12/23/19 14:57 BP 143/81 12/23/19 14:57 Pulse Ox 91 12/23/19 14:57 12/23/19 12/23/19 12/23/19 06:59 14:59 22:59 Intake Total 50 / 740 50 / 50 Balance 50 / 340 50 / 50 Physical Exam Narrative: EXAM NARRATIVE: General: Patient is awake alert and oriented, in no distress. Neck: No JVD, no cervical or supraclavicular lymphadenopathy. Respiratory: Reduced breath sound in the right lung anteriorly and laterally, the trachea is shifted to the right, reduced chest excursion on the right side, crackles bilaterally, no wheezing or rhonchi Cardiovascular: Regular rate and rhythm, S1-S2 present, no murmur, no peripheral edema. Abdomen: Soft, nontender, nondistended, positive bowel sound Skin: No rash, no evidence of erythema nodosum or multiforme. Neuro: Mental status is normal, no gross cranial nerve deficit, normal motor and coordination. Data Micro: Micro: Microbiology 12/23/19 03:17 Gram Stain - Final Sputum - Expector ated Sputum 12/21/19 14:45 MRSA Culture - Fin al Nose 12/21/19 11:12 Blood Culture - Pr eliminary Blood NEGATIVE TO MONTSE E 12/21/19 07:20 Blood Culture - Pr eliminary Blood NEGATIVE TO MONTSE E Other Data: Attestation for Other Data: I personally reviewed and interpreted the following: Other data: I have reviewed the patient laboratory, microbiologic and radiologic data. 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 I discussed the possibility of a bronchoscopic evaluation with the patient the patient absolutely denied the possibility of any bronchoscopy. After further discussion, patient agreed for ultrasound-guided fine-needle aspiration of the right upper lobe lung mass which was performed. If we do not get a diagnosis from FNA, the patient will need a bronchoscopic evaluation. 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 The patient is discharged from the hospital, I will be happy to follow-up with her as outpatient. 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
--- NOTE | 2019-12-23 16:06 | PM.ACPR ---
Procedure/Consent Time out: Time Out Performed: Yes Consent: Consent for Procedure: Consent obtained from patient Procedure Narrative: Name of the procedure: Ultrasound-guided fine-needle aspiration of the right upper lobe lung mass Indication: Right upper lobe lung mass suspicion for lung malignancy. Medications: 1% lidocaine 10 mL IV pain medication: Morphine 2 mg. Description of the procedure: The site was prepared using sterile technique. Using ultrasound the right upper lobe lung mass was identified. The skin, subcutaneous tissue, muscle and the parietal pleural layers were anesthetized with 1% lidocaine. Under direct ultrasound visualization the FNA was performed from the right upper lobe lung mass. Sample: The FNA sample was sent for cytology and histopathology. Complications: None. Acute Procedures Epistaxis Control: Time out performed: Yes
--- NOTE | 2019-12-23 16:32 | P.PTHFZ_ITS ---
Endobronchial Ultrasound Specimen(s): Right upper lobe lung mass fine-needle aspiration biopsy Gross: The specimen is received in a single container, fresh, labeled with the patient's name and MRN number. It consists of 3 cc of red blood and a fine- needle aspiration syringe. 2 Diff-Quik slides are performed and the remaining specimen is submitted in formalin. Preliminary Impression: Lung, right upper lobe, mass, fine-needle aspiration biopsy: ?Peripheral blood elements in a background of necrosis. ?No overt epithelial cells or malignancy identified. - Specimen Information Pathologist: Fadi Hernandez Date: 12/23/19 Specimen reported at what time: 12:40 - Clinician Specimen collection time: 12:25 Clinician reported to: Robert Delong
--- NOTE | 2019-12-23 16:58 | PM.PN ---
Subjective Subjective: Interval history: Patient was seen with pulmonology this morning and underwent FNA of lung mass percutaneously. Medications: Reviewed: Yes Medication Review Details: Generic Name Dose Route Start Last Admin Trade Name Jade PRN Reason Stop Dose Admin Folic Acid 1 mg 12/22/19 09:00 12/22/19 08:33 Folic Acid PO 1 mg DAILY SARAH Administration Sodium Chloride 1,000 mls @ 75 ml s/hr 12/21/19 14:00 12/22/19 07:26 Sodium Chloride 0.9% IV 75 mls/hr .[id number] SARAH Administration Piperacillin Sod/T azobactam 50 mls @ 12.5 mls /hr 12/21/19 16:00 12/22/19 07:18 Sod 3.375 gm/ So dium Chloride IV 12.5 mls/hr Q8H SARAH Administration Protocol Iron Sucrose 200 m g/ Sodium 110 mls @ 220 mls /hr 12/22/19 09:00 12/22/19 09:42 Chloride IV 12/26/19 09:29 220 mls/hr Q24H SARAH Administration Pantoprazole Sodiu m 40 mg 12/22/19 09:00 12/22/19 08:33 Protonix IVP 40 mg Q12H SARAH Administration Vitals/I&O/Wt Last Vital Signs Temp 98.6 F 12/23/19 14:57 Pulse 68 12/23/19 14:57 Resp 18 12/23/19 14:57 BP 143/81 12/23/19 14:57 Pulse Ox 91 12/23/19 14:57 12/23/19 12/23/19 12/23/19 06:59 14:59 22:59 Intake Total 50 / 740 50 / 50 Output Total 200 / 200 Balance 50 / 340 50 / 50 -200 / -150 Physical Exam Narrative: EXAM NARRATIVE: GEN: Awake, alert and oriented, no acute distress CVS: S1S2 N RS: Bronchial breath sounds over right upper lobe. 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 The patient is found to have hypoxia which responded well to supplemental oxygen. The patient has cavitary lesion in the right lung, hilum and suspected postobstructive pneumonia. However, normal procalcitonin level. Currently on Zosyn. For the cavitary lesion, she was planned to undergo bronchoscopy on Monday, however per discussion with pulmonary, she eventually refused the procedure. In view of the bronchoscopy she underwent an FNA of this mass today and results are awaited at this present time. Patient states she does not want any aggressive interventions to pursue a diagnosis at this present time, understanding the risk of missing a malignancy. Continue supplemental oxygen to titrate O2 sats greater than 90%. Hyponatremia. Resolving could be related to SIADH secondary to past lung cancer and pneumonia. Continue to monitor Hypercalcemia. Could be part of paraneoplastic syndrome related to the suspected cancer. Anemia. Continue IV Venofer . will monitor her anemia. Fecal occult blood testing is positive but I suspect this is due to hemoptysis and swallowing the mucus. Continue IV PPI twice daily. Hyperglycemia. We will check her A1c level. DVT prophylaxis. Teds and SCDs, Lovenox is stopped due to hemoptysis and positive fecal occult blood test/anemia. Full code. Above discussed with patient and her son Shreyas. Attestations Medical Necessity Statement*: Underwent FNA of the lung mass today, awaiting results for further management plans. Coding Level of Care Code Acute Chemist Internship for [facility]
[2019-12-24] VITALS (8 sets, daily range): BP systolic 115–154; BP diastolic 57–78; PULSE 66–85; RESP 13–22; TEMP 36.7–37.1; O2SAT 80–92
[2019-12-24] MEDS: piperacillin-tazobactam 3.375 GM in sodium chloride 0.9% (plus) 50 ML IV (01:42)
[2019-12-24 08:06] LABS: Basophils # 0.1 10^3/uL (0.0-0.1); Basophils % 0.5 %; Eosinophils # 0.1 10^3/uL (0.0-0.8); Eosinophils % 1.1 %; Hematocrit 32.3 % (37.0-47.0); Hemoglobin 9.6 g/dL (11.5-15.3); Lymphocytes # 1.7 10^3/uL (0.8-4.8); Lymphocytes % 14.8 %; Mean Corpuscular HGB Conc 29.7 g/dL (30.0-36.0); Mean Corpuscular Volume 80.8 fL (81-99); Mean Platelet Volume 9.1 fL (7.4-10.4); Monocytes % 8.5 %; Neutrophils # 8.38 10^3/uL (1.8-7.7); Neutrophils % 74.5 %; Nucleated Red Blood Cells % 0 %; Platelet Count 390 10^3/cmm (130-400); Red Cell Distribution Width 16.1 % (12.1-15.1); White Blood Count 11.3 10^3/uL (4.0-10.0)
[2019-12-24 08:24] LABS: Alanine Aminotransferase 10 U/L (0-33); Alkaline Phosphatase 58 IU/L (35-105); Anion Gap 13.6 (5-19); Aspartate Amino Transferase 14 U/L (0-32); Blood Urea Nitrogen 7 mg/dL (8-23); Calcium 9.6 mg/dL (8.5-10.5); Carbon Dioxide 21 mmol/L (22-29); Chloride 101 mmol/L (98-107); Globulin 3.1 g/dL (1.3-4.6); Glucose 104 mg/dL (65-115); Osmolality Calculated 272 mOsm/kg (285-295); Potassium 3.6 mmol/L (3.5-5.1); Sodium 132 mmol/L (136-145); Total Bilirubin 0.2 mg/dL (0.15-1.2); Total Protein 6.1 g/dL (6.6-8.7)
--- NOTE | 2019-12-24 08:45 | PC.SOCIAL ---
IMM Page 2 of IMM given to patient. Initialed, dated, and timed and placed in chart.
[2019-12-24] MEDS: iron sucrose 200 MG in sodium chloride 0.9% (100 ml) 100 ML 220 MG IV (08:59)
[2019-12-24] MEDS: folic acid 1 mg Tablet PO (09:03)
[2019-12-24] MEDS: pantoprazole 40 mg SDV IVP (09:03)
--- NOTE | 2019-12-24 13:59 | PC.NURSE ---
Patient being discharged. Home O2 eval completed and required. Contacted home health care social worker for oxygen order.
--- NOTE | 2019-12-24 16:10 | P.DS_ITS ---
Discharge Providers Date of Admission: 12/21/19 10:03 Date of Discharge: December 24, 2019 Attending Provider at Admission: Faustino Rodas Attending Provider at Discharge: Sylwia Garcia MD Primary Care Provider: Santi Modi MD Diagnoses at Discharge Discharge Diagnosis (1) Cavitating mass in right upper lung lobe: Status: Acute (2) Metastasis to adrenal gland: Status: Acute Reason for Visit Reason for Visit: N/V DIZZY Hospital Course Discharge Summary: Patient is a 79-year-old lady who presented to the hospital with subacute cough, some sputum production shortness of breath and generalized weakness. She was found to have a new oxygen requirement. CAT scan of the chest was performed and she was found to have a new right upper lobe cavitary lesion with volume loss, right-sided pleural effusion with mediastinal shift. CAT scan also revealed soft tissue mass in the right hilum with narrowing of the pulmonary artery. He was additionally found to be a large left adrenal nodule which was concerning for underlying malignancy. She carries an extensive history of smoking, quit recently. Patient was initially planned to undergo a bronchoscopy with pulmonology, however she subsequently refused the procedure stating that at 79 she does not want a very aggressive work-up. Instead a bedside FNA was performed from the cavitary lesion. Results of this FNA showed mainly peripheral blood elements in the background of necrosis. No overt epithelial cells or malignancy were identified. For diagnostic evaluation, it was recommended that patient still undergo bronchoscopy with biopsy, however patient is adamantly refusing it at this time. This was discussed also additionally with patient's son Shreyas. Referral was provided to pulmonology Dr. Delong as an outpatient in case patient changes her mind and decides to undergo diagnostic evaluation. At this present time she says she would prefer to let nature take its course and declines any further interventions. Due to concerns for obstructive pneumonia she received IV antibiotics while inpatient, this is been transitioned to p.o. Levaquin to complete total 5 days of treatment. She underwent a home oxygen evaluation prior to discharge and qualified for supplemental O2 which has been arranged for her. Physical Exam Narrative: EXAM NARRATIVE: GEN: Awake, alert and oriented, no acute distress CVS: S1S2 N RS: Right upper lobe with bronchial breath sounds which are coarse. 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 Discharge Data Data Completed and Pending: Completed Studies During Hospitalization Category Date Time Status CT angio chest PE protcl 13148 Stat Cat Scan 12/21/19 08:[address] head wo con* 7 0450 Stat Cat Scan 12/21/19 07:19 Completed XR chest 1V ang ble 15722 Routine Exams 12/23/19 15:13 Completed XR chest 1V ang ble 64236 Stat Exams 12/21/19 07:20 Completed Pathology: Surgic al [PTH] Routine Pth 12/23/19 13:14 Completed Pending at discharge Category Date Time Status Blood Culture Sta t Lab 12/21/19 07:20 Results Folate Level Rout ine Lab 12/21/19 07:20 Received PTH Related Pepti de (Protein) Routi ne Lab 12/21/19 13:59 Received Sputum Culture an d Gram Stain Stat Lab 12/23/19 03:17 Results Cytology [PTH] Ro utine Pth 12/23/19 13:13 Ordered Labs from last 24 hours 12/24/19 12/24/19 07:48 07:48 WBC 11.3 H RBC 4.00 L Hgb 9.6 L Hct 32.3 L MCV 80.8 L MCH 24.0 L MCHC 29.7 L RDW 16.1 H Plt Count 390 MPV 9.1 Neut % (Auto) 74.5 Lymph % (Auto) 14.8 Catron % (Auto) 8.5 Eos % (Auto) 1.1 Baso % (Auto) 0.5 Neut # (Auto) 8.38 H Lymph # (Auto) 1.7 Catron # (Auto) 1.0 H Eos # (Auto) 0.1 Baso # (Auto) 0.1 Nucleated RBC % (a uto) 0 Nucleated RBCs # 0.0 Sodium 132 L Potassium 3.6 Chloride 101 Carbon Dioxide 21 L Anion Gap 13.6 BUN 7 L Creatinine 0.6 GFR Calculation Not Reportable Glucose 104 Calculated Osmolal ity 272 L Calcium 9.6 Total Bilirubin 0.2 AST 14 ALT 10 Alkaline Phosphata se 58 Total Protein 6.1 L Albumin 3.0 L Globulin 3.1 Vitals: Last Vital Signs Temp 98.2 F 12/24/19 15:38 Pulse 79 12/24/19 15:38 Resp 22 H 12/24/19 15:38 BP 154/78 12/24/19 15:38 Pulse Ox 90 12/24/19 15:38 Discharge Plan Discharge Patient Disposition: Home Condition: Stable Prescriptions: New folic acid 1 mg Tablet 1 mg PO DAILY 30 Days RF: 0 Ventolin HFA 90 mcg/actuation Hfa Aerosol Inhaler 2 puff inhalation Q6H.RESPIRATORY PRN (Reason: Shortness Of Breath) 30 Days Qty: 1 RF: 1 levofloxacin 750 mg tablet 750 mg PO DAILY 2 Days RF: 0 ferrous sulfate 325 mg (65 mg iron) tablet 325 mg PO DAILY Qty: 30 RF: 0 Changed Aleve 220 mg Capsule 220 mg PO DAILY PRN (Reason: prn) Qty: 0 RF: 0 Discharge Orders: Discharge Order (Routine); Ordered 12/24/19 Ordered By: Sylwia Garcia Other Ambulatory Orders: DME: Oxygen (Order) Location: None Selected Ordered By: Sylwia Garcia Referrals: Robert Delong MD [Physician] - 01/06/20 10:30 am (for assesment of lung mass/likely bronchoscopy ) Discharge Diet: Usual diet Discharge Activity: Resume usual activity and Oxygen as instructed Patient Instructions: Iron Supplements (By mouth), Naproxen (By mouth), Albuterol (By breathing), Folic Acid (By mouth), Levofloxacin (By mouth), Viral Pneumonia (DC), Iron Rich Diet (DC), Anemia (DC), Pneumonia Stoplight, Using Oxygen at Home Discharge Date/Time: 12/24/19 16:11 Discharge Attestations Time Spent in Discharge Care*: greater than 30 min Specific Discharge Activities: Specific discharge activities: educating patient, educating and/or supporting family/caregiver and evaluating patient/reviewing data Quality Metrics Clinical Quality Measures During this hospital stay, did patient experience: None Coding Level of Care Code 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
[2019-12-31 16:41] LABS: PTH Related Peptide (Protein) 17 pg/mL (14-27)
== END 2019-12-24 16:11 | disposition home or self-care (01) | DRG 193 ==
LOC: ER 10:35 → MEDSURG 11:26
PROVIDERS: Family Medicine; Admitting Provider Internal Medicine; PCP Family Medicine; Visit Provider Student in an Organized Health Care Education/Training Program
DX: J18.9 Pneumonia, unspecified organism (principal); J96.01 Acute respiratory failure with hypoxia; E87.1 Hypo-osmolality and hyponatremia; J44.0 Chronic obstructive pulmonary disease with (acute) lower respiratory infection; D64.9 Anemia, unspecified; R91.1 Solitary pulmonary nodule; E83.52 Hypercalcemia; R73.9 Hyperglycemia, unspecified
CPT/HCPCS: 12345; 36415; 36600; 70450; 71045; 71275; 80053; 80069; 81003; 82274; 82330; 82542; 82607; 82728; 82746; 82803; 83036; 83540; 83550; 83605; 83615; 83735; 84145; 84466; 85025; 85378; 85384; 86140; 87040; 87070; 87205; 87426; 87635; 87641; 88307; 93005; 94664; 96372; 96375; 99283; C9113; J1650; J1756; J1956; J2060; J2270; J2405; J2543; J3490; J7030; Q9967